=== PATIENT | female | born 1950 | race Caucasian/White ===

== ENCOUNTER 2019-12-26 19:50 | Inpatient (IN) | payer MEDICARE ==
[~2019-12-26] VITALS: Ht 167.6 cm; Wt 59.0 kg
[2019-12-26] MEDS ORDERED: SODIUM CHLORIDE 0.9% 1000ML 1,000 ML IV STA (19:54)
[2019-12-26] MEDS ORDERED: DILTIAZEM HCL 5 MG/ML 5 ML VIAL IV STA ×2 (20:20→23:06)
[2019-12-26] MEDS ORDERED: DIGOXIN INJ 0.25 MG/ML 2 ML AMP IV ONE (20:30)
--- NOTE | 2019-12-26 20:56 | Diagnostic Imaging Report ---
Examination: CT BRAIN WO CONTRAST History:Syncope Comparison studies:None Technique: Axial images were obtained from the skull base to the vertex. Coronal and sagittal images reconstructed from the axial data. Dose modulation, iterative reconstruction, and/or weight based adjustment of the mA/kV was utilized to reduce the radiation dose to as low as reasonably achievable. Intravenous contrast: None Findings: Scalp: No abnormalities. Bones: No fractures, blastic or lytic lesions. Brain sulci: Appropriate for age. Ventricles: Normal in size and configuration. No hydrocephalus. Extra-axial space: No abnormalities. Parenchyma: No abnormal densities. No masses, hemorrhage, or acute or chronic cortical based vascular insults.. Sellar/suprasellar region: No abnormalities. Craniocervical junction: Patent foramen magnum. No Chiari one malformation. Incidental findings: None. Impression: No acute intracranial abnormalities. Signed by: Dr. Augustina Watts M.D. on 12/26/2019 8:54 PM
--- NOTE | 2019-12-26 21:17 | Diagnostic Imaging Report ---
EXAMINATION: CHEST 2 VIEWS INDICATION: Syncope. COMPARISON: None FINDINGS: TUBES and LINES: None. LUNGS: Mild patchy density in the right lung base associated with elevation of the right hemidiaphragm may represent atelectasis. Mild patchy density in the right suprahilar region represent developing pneumonia in the proper clinical setting. PLEURA: Small right pleural effusion. No left pleural effusion or pneumothorax. HEART AND MEDIASTINUM: The cardiomediastinal silhouette is unremarkable. BONES AND SOFT TISSUES: No acute osseous lesion. Soft tissues are unremarkable. UPPER ABDOMEN: No free air under the diaphragm. IMPRESSION: Mild patchy density in the right suprahilar region represent developing pneumonia in the proper clinical setting. Signed by: Dr. Justin Ochoa M.D. on 12/26/2019 9:15 PM
[2019-12-26 22:09] LABS: BASOPHILS % 0.1 % (0.0-1.0); HEMOGLOBIN 12.7 g/dL (12.0-16.0); LYMPHOCYTES # (AUTO) 0.8 (1.0-3.2); LYMPHOCYTES % 12.1 % (18.0-39.1); MEAN CORPUSCULAR HEMOGLOBIN 30.8 pg (28-32); MEAN CORPUSCULAR HGB CONC 35.3 g/dL (31-35); MEAN CORPUSCULAR VOLUME 87.4 fL (81-99); MONOCYTES # (AUTO) 0.3 (0.2-0.8); MONOCYTES % 5.1 % (4.4-11.3); NEUTROPHILS # (AUTO) 5.5 (2.1-6.9); NEUTROPHILS % 82.4 % (38.7-80.0); PLATELET COUNT 204 x10e3/uL (140-360); RED BLOOD COUNT 4.12 x10e6/uL (3.6-5.1); RED CELL DISTRIBUTION WIDTH 12.3 % (11.7-14.4)
--- OUTSIDE RECORDS SUMMARY | 2019-12-26 22:15 | XMS REPORT ---
Author [facility] Address Unknown Phone Unavailable Care Team Providers Care Solar Technician Name Role Phone KATIE CHUNG Unavailable Unavailable Problems This patient has no known problems. Allergies, Adverse Reactions, Alerts This patient has no known allergies or adverse reactions. Medications This patient has no known medications. Results Test Description Test Time Test Comments Text Results Atomic Results Result Comments CHEST 2 VIEWS 2019-12-26 21:13:00 [place] [address] Patient Name: SHAWNEE KEMP MR #: [id number] : 1950 Age/Sex: 69/F Req #: [id number] Adm Physician: Ordered by: CHUNG WILSON DO Report #: [id number] Location: ER Room/Bed: Procedure: [id number] DX/CHEST 2 VIEWS Exam Date: Exam Time: REPORT STATUS: Signed EXAMINATION: CHEST 2 VIEWS INDICATION: Syncope. COMPARISON: None FINDINGS: TUBES and LINES: None. LUNGS: Mild patchy density in the right lung base associated with elevation of the right hemidiaphragm may represent atelectasis. Mild patchy density in the right suprahilar region represent developing pneumonia in the proper clinical setting. PLEURA: Small right pleural effusion. No left pleural effusion or pneumothorax. HEART AND MEDIASTINUM: The cardiomediastinal silhouette is unremarkable. BONES AND SOFT TISSUES: No acute osseous lesion. Soft tissues are unremarkable. UPPER ABDOMEN: No free air under the diaphragm. IMPRESSION: Mild patchy density in the right suprahilar region represent developing pneumonia in the proper clinical setting. Signed by: Dr. Justin Moore M.D. on 12/26/2019 9:15 PM Dictated By: MARILEE MOORE MD, MD 14 Transcribed By: MONTEZ on 12/26/192114 COPY TO: CHUNG WILSON DO CT BRAIN WO 2019-12-26 20:42:00 [place] [address] Patient Name: SHAWNEE KEMP MR #: [id number] : 1950 Age/Sex: 69/F Req #: [id number] Adm Physician: Ordered by: CHUNG WILSON DO Report #: [id number] Location: ER Room/Bed: Procedure: [id number] CT/CT BRAIN WO Exam Date: Exam Time: REPORT STATUS: Signed Examination: CT BRAIN WO CONTRAST History:Syncope Comparison studies:No ne Technique: Axial images were obtained from the skull base to the vertex. Coronal and sagittal images reconstructed from the axial data. Dose modulation, iterative reconstruction, and/or weight based adjustment of the mA/kV was utilized to reduce the radiation dose to as low as reasonably achievable. Intravenous contrast: None Findings: Scalp: No abnormalities. Bones: No fractures, blastic or lytic lesions. Brain sulci: Appropriate for age. Ventricles: Normal in size and configuration. No hydrocephalus. Extra-axial space: No abnormalities. Parenchyma: No abnormal densities. No masses, hemorrhage, or acute or chronic cortical based vascular insults.. Sellar/suprasellar region: No abnormalities. Craniocervical junction: Patent foramen magnum. No Chiari one malformation. Incidental findings: None. Impression: No acute intracranial abnormalities. Signed by: Dr. Augustina Watts M.D. on 12/26/2019 8:54 PM Dictated By: AUGUSTINA LANDEROS MD 53 Transcribed By: MONTEZ on 12/26/192053 COPY TO: CHUNG WILSON DO
[2019-12-26 22:29] LABS: ALANINE AMINOTRANSFERASE 17 IU/L (0-55); ALBUMIN 3.9 g/dL (3.5-5.0); ALBUMIN/GLOBULIN RATIO 1.4 (0.8-2.0); ALKALINE PHOSPHATASE 65 IU/L (40-150); ANION GAP 18.1 mmol/L (8-16); BLOOD UREA NITROGEN 9 mg/dL (7-26); BUN/CREATININE RATIO 11 (6-25); CALCIUM 9.1 mg/dL (8.4-10.2); CARBON DIOXIDE 17 mmol/L (22-29); CHLORIDE 103 mmol/L (98-107); CREATINE KINASE 156 IU/L (29-168); CREATININE, SERUM 0.79 mg/dL (0.57-1.11); EST GLOMERULAR FILTRATION RATE > 60 ML/MIN (60-); GLUCOSE 95 mg/dL (74-118); POTASSIUM 3.1 mmol/L (3.5-5.1); SODIUM 135 mmol/L (136-145)
[2019-12-26 22:39] LABS: CLARITY,URINE CLEAR (CLEAR); COLOR,URINE YELLOW (YELLOW); LEUKOCYTE ESTERASE ,URINE NEGATIVE (NEGATIVE)
[2019-12-26 22:40] LABS: BACTERIA,URINE MODERATE /HPF; BILIRUBIN,URINE NEGATIVE (NEGATIVE); EPITHELIAL CELLS,URINE MANY /LPF; KETONES,URINE 1+ (NEGATIVE); NITRITE,URINE NEGATIVE (NEGATIVE); PROTEIN,URINE DIPSTICK NEGATIVE (NEGATIVE); URINE UROBILINOGEN 0.2 mg/dL (0.2 - 1); WBC,URINE (MAN) 0-5 /HPF (0-5)
[2019-12-27] VITALS (21 sets, daily range): BP systolic 112–135; BP diastolic 66–80
[2019-12-27] MEDS ORDERED: DILTIAZEM HCL 5 MG/ML 5 ML VIAL IV STA (00:41)
--- NOTE | 2019-12-27 00:54 | NUR ---
PT ASKING TO TAKE HOME MEDICATION, VINEET 10. ER MD AT BEDSIDE, VERBALIZED UNDERSTANDING FOR PT TO TAKE HOME MEDICATION. SENIOR PYTHON DEVELOPER WITNESSED PT TAKE MEDICATION. PT TOLERATED WELL. NO ACUTE DISTRESS NOTED. PT STATED RT BICEP PAIN LEVEL 7/10.
--- NOTE | 2019-12-27 01:13 | Diagnostic Imaging Report ---
EXAM: CT Chest WITH contrast 12/26/2019 8:21 PM INDICATION: Chest pain. Recent surgery. Pulmonary embolism. COMPARISON: None TECHNIQUE: Chest was scanned utilizing a multidetector helical scanner from the lung apex through the level of the adrenal glands without administration of IV contrast. Coronal and sagittal reformations were obtained. Routine protocol was performed. IV CONTRAST: 100 mL of Omnipaque 300 RADIATION DOSE: Total DLP: 410.34 mGy*cm Estimated effective dose: (DLP x 0.014 x size factor) mSv COMPLICATIONS: None FINDINGS: LINES/ TUBES: None. LUNGS AND AIRWAYS: Right basilar subsegmental atelectasis. Right upper lobe pleural parenchymal scarring anteriorly may reflect post radiation changes. Mild left apical pleural-parenchymal scarring. Airways are normal. PLEURA: Small pleural effusion in the posterior right lower hemithorax. HEART AND MEDIASTINUM: 8 mm low-attenuation nodule in the right thyroid lobe. No mediastinal, hilar or axillary lymphadenopathy. The heart is normal in size.. Trace pericardial fluid. There are mild atherosclerotic calcifications in the aorta and coronary arteries. UPPER ABDOMEN: Limited non-contrast views of the upper abdomen show no abnormality within the visualized liver, spleen, pancreas, or kidneys. The adrenal glands are normal. BONES: There are degenerative changes in the thoracic spine. SOFT TISSUES: Postoperative changes involving the right shoulder, with subcutaneous emphysema along the anterior superior right hemithorax and visualized axillary region. Multiple surgical clips in the right breast IMPRESSION: 1. No acute pulmonary embolism. 2. Right basilar subsegmental atelectasis and small volume right pleural effusion. Signed by: Dr. Justin Ochoa M.D. on 12/27/2019 1:11 AM
[2019-12-27] MEDS ORDERED: IOPAMIDOL 370 MG/ML 200 ML INFUS..BTL INJ ONE (03:21)
[2019-12-27] MEDS ORDERED: SODIUM CHLORIDE 0.9% 50ML 50 ML ONE (03:21)
[2019-12-27] MEDS ORDERED: DILTIAZEM HCL 125 ML IV SCH (03:45)
[2019-12-27] MEDS: DILTIAZEM HCL 125 ML IV SCH (04:10)
[2019-12-27] MEDS ORDERED: SODIUM CHLORIDE 0.9% 100 ML ONE (04:16)
[2019-12-27] MEDS ORDERED: DILTIAZEM HCL IV 5MG/ML 25 ML VIAL ONE (04:17)
[2019-12-27] MEDS: SODIUM CHLORIDE 0.9% 1000ML 1,000 ML IV SCH ×3 (05:33→13:28)
[2019-12-27] MEDS: MORPHINE SULFATE INJ 4 MG/ML INJ 1ML IV PRN ×3 (05:39→22:05)
[2019-12-27 07:32] LABS: CREATINE KINASE 165 IU/L (29-168)
[2019-12-27] MEDS: POTASSIUM CHLORIDE 20 MEQ TAB CR PO SCH (07:54)
[2019-12-27] MEDS ORDERED: ACETAMINOPHEN 325 MG TAB PO PRN (13:00)
[2019-12-27] MEDS: ASPIRIN 81 MG CHEW TAB PO SCH (13:28)
[2019-12-27] MEDS ORDERED: POTASSIUM CHLORIDE 20 MEQ TAB CR PO NR (15:00)
--- NOTE | 2019-12-27 16:34 | NUR ---
spoke with Dr. Reynolds who was consulted for pain management. new order received.
--- NOTE | 2019-12-27 17:56 | NUR ---
Pt received from Mohamud JONES this morning. Pt reports having a R shoulder tendon and bicep repair on 12/25/19 - outpatient. Pt has a Ropivacaine pump infusing. Pt currently in SR at this time. Potassium replacement ordered. Dr. Serna and Dr. Danielle informed of consult. Cardizem turned off at 0900. Dr. Serna ordered lab work, EKG and echocardiogram. Per Fabienne SKIDDER consult pain management Dr. Reynolds, Dr. Reynolds called and informed of consult. Will continue to monitor the patient.
[2019-12-27] MEDS: CEFTRIAXONE SOD 1 GM/NS 50 ML 50 ML IV SCH (18:36)
--- NOTE | 2019-12-27 19:59 | Consultation ---
DATE OF CONSULTATION: 12/27/2019 Pulmonary Medicine Consult REASON FOR REFERRAL: Critical illness, impending organ failure. HISTORY OF PRESENT ILLNESS: Ms. Ricks is a pleasant 69-year-old female with critical illness. The patient presented to the [facility] on December 27, 2019. The patient had syncope. The patient at that time was previously on multiple medications include intermittent [place], Zanaflex intermittent as well as the recently placed right external jugular pain pump that ropivacaine in it. The patient had surgery on December 25, 2019, at [facility] outpatient area for a right shoulder surgery to repair 3 detached tendons and other reconstruction. The patient had uncomplicated course, but was sent out with pain pump as well as the pain medicine during that outpatient procedure. The patient presented with syncope on this admit, but initially was found in atrial fibrillation, heart rate 120 beats per minute. The patient with initial CT head without acute changes. CT chest with right diaphragm elevation and mild right atelectasis, very small pleural effusion. PAST MEDICAL HISTORY: Degenerative joint disease, limited history. MEDICATIONS: No medication listed on the patient's outpatient intake form, but some medicines were given postoperatively as stated above. ALLERGIES: NO KNOWN DRUG ALLERGIES. SOCIAL HISTORY: No smoking, no drinking, no drugs for majority of her life. 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 The patient lives in [facility]. FAMILY HISTORY: Noncontributory to this. REVIEW OF SYSTEMS: GENERAL: No weight changes. OPHTHALMOLOGIC: No vision changes. ENT: No mouth ulcers. ENDOCRINE: No history of thyroid problems. PULMONARY: No asthma. CARDIAC: No recent heart attack. GI: No diarrhea. : No blood in urine. NEUROLOGIC: No seizures known. PSYCHIATRIC: No depression. DERMATOLOGIC: No rashes. PHYSICAL EXAMINATION: VITAL SIGNS: Afebrile, vital signs noted and reviewed per the chart record. GENERAL: In no acute distress, alert, calm, pleasant now. HEENT: Normocephalic and atraumatic. NECK: Supple. Throat midline. LUNGS: Bilateral air entry, rare rhonchi, mostly clear. CARDIOVASCULAR: S1 and S2. No murmurs, rubs, or gallops. More regular now. ABDOMEN: Soft and nontender. EXTREMITIES: No clubbing. No cyanosis. There is no edema. INTEGUMENT: No rash. No purpura. LABORATORY DATA: 3.1 potassium, BUN 9, and creatinine 0.8. 6.7 white count, 36 hematocrit, and 204 platelets. IMPRESSION AND PLAN: 1. Atrial fibrillation with rapid ventricular rate, now better. 2. Syncope, more likely due to polypharmacy administration versus atrial arrhythmia. 3. Postoperative stay, status post recent shoulder reconstruction few days ago. 4. Admit with syncope. 5. Arthritis. Check full labs including repeat electrolytes and thyroid screening. Continue diltiazem for rate control. Some potassium given to initial dosing. Check magnesium level. The patient activated with bupivacaine pain pump inserted and we will leave this to [facility] specialist unless they deferred to us. The patient tells me the pump self-terminates usage after the medicine runs out, which would be another day or 2 critical arrhythmia, we will not act emergently and override any of the pump settings. Thank you very much, Dr. Hughes, for allowing me a chance to participate in the care of Ms. Ricks. Please call for questions. MD GRACE Park/CASA /[id number]
--- NOTE | 2019-12-27 20:04 | Consultation ---
DATE OF CONSULTATION: 12/27/2019 Cardiac Consultation REASON FOR CONSULTATION: Atrial fibrillation. HISTORY OF PRESENT ILLNESS: A 69-year-old lady, who is very active and healthy. She does have problem with her right shoulder. She has viral illness. She had her surgery done and she had pain pump implantation. The patient felt dizzy, passing out. She came to the emergency room. She was in atrial fibrillation with relatively slow ventricular response in the 80s. She is admitted to intensive care unit, started initially on Cardizem. She converted back to normal sinus rhythm. The patient denied having any angina. She said she is having some shortness of breath. She said she was fainted after the surgery when this problem started. CT chest showed no pulmonary embolism. It showed subcutaneous emphysema and swelling of the soft tissue. Cardiac enzymes are normal. REVIEW OF SYSTEMS: GENERAL: No fever. No chills. HEENT: No vision problem. No hearing problem. PULMONARY: No cough. No hemoptysis. Some shortness of breath. CARDIOVASCULAR: No angina. No prior syncope or presyncope. No palpitation. GI: No hematemesis. No melena. : No hematuria. No dysuria. MUSCULOSKELETAL: Right shoulder pain. NEUROLOGICAL: No seizure activity. ENDOCRINE: No diabetes. No heat or cold intolerance. HEMATOLOGY: No easy bruising or bleeding. 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 She is nonsmoker, not alcohol drinker. HOME MEDICATIONS: None. CURRENT MEDICATIONS: Novocaine pump, trazodone, and [place]. ALLERGIES: NONE. PAST MEDICAL HISTORY: All is right shoulder problem, right breast lumpectomy with radiation therapy for breast cancer. FAMILY HISTORY: Father of old age at age 91, he had congestive heart failure. Mother of complication of breast cancer at age 92. No siblings. One healthy son. PHYSICAL EXAMINATION: VITAL SIGNS: Height of 5 feet 6 inches, weight of 130 pounds, blood pressure 120/70, heart rate of 70, regular rate and rhythm, respiratory rate of 20, and afebrile. HEENT: Pupils are equal and reactive. NECK: No elevation of jugular venous pulsation. No bruit. CHEST: Clear to auscultation and percussion. HEART: PMI 5th left intercostal space. Normal first and second heart sounds. ABDOMEN: Soft. Good bowel sounds. EXTREMITIES: Right arm is in immobilizer. NEUROLOGIC: Awake, alert, and oriented. No motor or sensory deficits. LABORATORY DATA: CT head is negative. CT chest was negative for pulmonary embolism. There are some lung changes. Subcutaneous tissue emphysema is noted. EKG showing atrial fibrillation with no fast heart rate almost at 100-110. Telemetry, she is in normal sinus rhythm. IMPRESSION AND PLAN: 1. An episode of syncope after surgery, multifactorial, first episode the patient having. 2. No active cardiac symptoms. 3. Atrial fibrillation with a relatively slow heart rate or relatively slow V-response since heart rate response only in the 110-120, which is expected in a person with new atrial fibrillation with heart rate to be 170-180 or more even more. This will probably indicate a little bit of conduction abnormalities. The patient is back in normal sinus rhythm. We will check TSH. We will repeat EKG to be sure that EKG on normal sinus rhythm and showing no abnormality. We will check an echocardiogram. There is no pulmonary embolism. We will not recommend any beta-ella or any other medication for the time being. Definitely, we will start aspirin. Her CHADS score is only 1. Her CHADS2 score is 2. All this explained and discussed with the patient. For the time being, we will recommend observation pending on the results and course further steps to be done. MD XOCHITL Newby/CASA /[id number]
--- NOTE | 2019-12-27 20:13 | Diagnostic Imaging Report ---
EXAMINATION: CHEST SINGLE (PORTABLE) INDICATION: Pneumonia. COMPARISON: 12/26/2019. FINDINGS: TUBES and LINES: None. LUNGS: Mild elevation of the right hemidiaphragm suggestive of subsegmental atelectasis. Mild interval decrease in patchy density in the right apex. PLEURA: Small right pleural effusion. No left pleural effusion or pneumothorax. HEART AND MEDIASTINUM: The cardiomediastinal silhouette is unremarkable. BONES AND SOFT TISSUES: No acute osseous lesion. Soft tissues are unremarkable. UPPER ABDOMEN: No free air under the diaphragm. IMPRESSION: Mild patchy density in the right suprahilar region has somewhat decreased since the prior exam. Signed by: Dr. Justin Ochoa M.D. on 12/27/2019 8:10 PM
--- NOTE | 2019-12-27 22:19 | History and Physical ---
PCP: Dr. Grover at [facility]. CHIEF COMPLAINT: Dizziness and shortness of breath. HISTORY OF PRESENT ILLNESS: This is a 69-year-old female with no past medical history presented to the ER with complaints of dizziness and syncope. She reported having right shoulder and biceps surgery due to overuse due to playing violin. She reported the surgery was done on December 25 two days ago. Has a pain pump, which she reports has been causing her to feel dizzy and palpitation with dizziness ever since the surgery. She denies any chest pain, any nausea, vomiting, shortness of breath, cough, jerky movements, incontinence. She upon arrival to the ER initially was in normal sinus rhythm and converted to atrial fibrillation with RVR shortly. She was given Cardizem IV and digoxin with not much improvement, so was started on Cardizem drip and transferred to the ICU for further monitoring. PAST MEDICAL HISTORY: Breast cancer. SURGICAL HISTORY: 1. She reports right lobectomy. 2. Small bowel resection. 3. Skin cancer removal. FAMILY MEDICAL HISTORY: Mother of breast cancer. Father of heart failure at age of 91. SOCIAL HISTORY: She denies any tobacco, alcohol, or illicit drug use. 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 ALLERGIES: NO KNOWN DRUG ALLERGIES. REVIEW OF SYSTEMS: GENERAL: Fatigue and dizzy. HEENT: No head trauma. NECK: Supple. LUNGS: Decreased breath sounds. CARDIOVASCULAR: Palpitations. No chest pain. GI: No nausea or vomiting. NEUROLOGIC: Dizziness, syncope. MUSCULOSKELETAL: Generalized weakness. Right arm, shoulder and biceps pain. SKIN: No rash. PHYSICAL EXAMINATION: VITAL SIGNS: Temperature 98.4, pulse 64, respirations 11, blood pressure 135/66, pulse ox 100% on room air. GENERAL: No acute distress. HEENT: Normocephalic, atraumatic. NECK: Supple. LUNGS: Decreased breath sounds. CARDIOVASCULAR: Regular rate and rhythm. GI: Soft and nontender. NEUROLOGIC: Alert, awake, and oriented x3. MUSCULOSKELETAL: Right shoulder limited movement due to recent surgery and is in sling. SKIN: Dry. PSYCHIATRIC: Calm. LABORATORY DATA: WBC 6.67, hemoglobin 12.7, hematocrit 36.0, platelet 204. Chemistry: Sodium 135, potassium 3.1, CO2 is 17, BUN 9, creatinine 0.79, troponin 0.001, AST 21, ALT 17. Urine is yellow, clear with 1+ ketones, no leukocytes or wbc's. IMAGING: CT brain, no acute intracranial abnormalities. CT chest, no acute pulmonary embolism. Right basilar subsegmental atelectasis and small volume right pleural effusion. Chest x-ray shows mild patchy density in the right suprahilar region represent developing pneumonia in the proper clinical setting. IMPRESSION: 1. Syncope. CT brain negative. Cardiac enzymes negative. Sodium 135, potassium 3.1. Cardiology has been consulted. 2. Echocardiogram pending. 3. Atrial fibrillation with rapid ventricular response. She was given digoxin and Cardizem drip. She is off the drip now. Currently in normal sinus rhythm. Echo pending. Cardiology on the case. 4. Hypokalemia. We will replace and we will recheck. 5. Hyponatremia. Likely due to dehydration. We will continue to monitor closely. 6. Recent right shoulder and radial surgery. Pain management consulted to stop pain pump and re-evaluate. 7. Possible pneumonia on chest x-ray. We will treat with neb treatment and Rocephin. We will repeat chest x-ray in the morning. 8. History of breast cancer. 9. Deep venous thrombosis prophylaxis. We will defer anticoagulation to clinic manager. PLAN: To continue to monitor the patient in the ICU. Replace electrolytes and monitor on tele. Dictated by SARA Babin Jessica Hughes MD MY/MODL /[id number]
[2019-12-28] VITALS (21 sets, daily range): BP systolic 91–144; BP diastolic 53–93
[2019-12-28] MEDS: MORPHINE SULFATE INJ 4 MG/ML INJ 1ML IV PRN ×5 (02:12→19:18)
[2019-12-28] MEDS: DILTIAZEM HCL 125 ML IV SCH ×2 (04:00→23:05)
[2019-12-28] MEDS: SODIUM CHLORIDE 0.9% 1000ML 1,000 ML IV SCH ×2 (05:40→22:03)
[2019-12-28 06:21] LABS: ALANINE AMINOTRANSFERASE 26 IU/L (0-55); ALBUMIN 3.4 g/dL (3.5-5.0); ALBUMIN/GLOBULIN RATIO 1.3 (0.8-2.0); ALKALINE PHOSPHATASE 57 IU/L (40-150); ANION GAP 15.8 mmol/L (8-16); BLOOD UREA NITROGEN 6 mg/dL (7-26); BUN/CREATININE RATIO 9 (6-25); CALCIUM 8.5 mg/dL (8.4-10.2); CARBON DIOXIDE 18 mmol/L (22-29); CHLORIDE 108 mmol/L (98-107); EST GLOMERULAR FILTRATION RATE > 60 ML/MIN (60-); GLUCOSE 75 mg/dL (74-118); MAGNESIUM 1.6 MG/DL (1.3-2.1); PHOSPHORUS 3.2 MG/DL (2.3-4.7); POTASSIUM 3.8 mmol/L (3.5-5.1); SODIUM 138 mmol/L (136-145)
[2019-12-28 06:26] LABS: THYROID STIMULATING HORMONE 1.346 uIU/mL (0.350-4.940)
[2019-12-28 06:34] LABS: CHOL/HDL RATIO 2.8 (3.0-3.6)
--- NOTE | 2019-12-28 08:04 | NUR ---
Patient ambulate to restroom with standby supervision. Steady gait, able to perform ADLs independently with her left arm. Linens replaced. No acute distress noted.
[2019-12-28] MEDS: POTASSIUM CHLORIDE 20 MEQ TAB CR PO SCH ×2 (09:00→10:27)
[2019-12-28] MEDS: ASPIRIN 81 MG CHEW TAB PO SCH (09:34)
--- NOTE | 2019-12-28 10:28 | NUR ---
Adrianne for patient to transfer to Med Surg with Tele per Dr Serna.
[2019-12-28] MEDS: METOPROLOL TARTRATE 25 MG TAB PO SCH ×2 (11:03→17:15)
--- NOTE | 2019-12-28 14:00 | NUR ---
Nutrition Screen Note RD Recommendation for Physician: - Continue current diet Plan of Care: RD following, monitoring for tolerance and adequacy Nutrition reason for involvement: Nutrition Risk Trigger Primary Diagnose(s): Afib with RVR, syncope PMH: R lobectomy, small bowel resection, skin cancer Ht: 66 in Wt: 130 lb BMI: 21.0 kg/m2 IBW: [address] Assessment: (12/28) 69 YOF admitted for Afib with RVR, pt seen today per MST2 screen. 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 Pt denies any N/V/C/D. Pt denies any wt loss, reports UBW of 125-135#. Pt with no questions or concerns at time of visit. Chart reviewed. Labs and meds reviewed. Will monitor and continue to follow. Current Diet: Cardiac Malnutrition Evaluation (12/28/19) The patient does not meet criteria for a specified degree of malnutrition at this time. Will re-evaluate at follow-up as appropriate. Diet Education Needs Assessment: Diet education not indicated. Diet tolerance: tolerating po Nutrition Care Level: low Signed: Ophelia Leon RD, LD, [facility]
[2019-12-28] MEDS ORDERED: ALBUTEROL SULF 0.083% NEB SOLN 3 ML NEB NEB PRN (15:30)
[2019-12-28] MEDS: APIXABAN 5 MG TABLET PO SCH (17:14)
--- NOTE | 2019-12-28 17:34 | Progress Note ---
DATE: 12/28/2019 CONSULTANTS: 1. Dr. Serna with Cardiology. 2. Dr. Danielle with plaster mechanic. CHIEF COMPLAINT: Dizziness and shortness of breath with right shoulder pain post surgery. SUBJECTIVE: She remains in ICU, had another episode of atrial fibrillation with RVR this morning. Now with controlled rate of 100 to 110 and atrial fibrillation on the monitor. She reports right shoulder pain is increased. She denies any chest pain, nausea, vomiting, or shortness of breath. PHYSICAL EXAMINATION: VITAL SIGNS: Temperature 97.9, pulse is 109, respirations 17, blood pressure 129/81, and pulse ox is 98% on room air. GENERAL: Fatigue. HEENT: Normocephalic and atraumatic. NECK: Supple. LUNGS: With decreased breath sounds. CARDIOVASCULAR: Irregular rate and rhythm. GI: Soft and nontender. NEUROLOGIC: Alert, awake, and oriented x3. MUSCULOSKELETAL: Right shoulder limited movement due to recent surgery. Lower extremities, no edema, able to move with no limitations. SKIN: Dry. PSYCHIATRIC: Calm. LABORATORY DATA: Sodium 138, potassium 3.8, CO2 18, creatinine 0.70, and estimated GFR greater than 60. AST 36 and ALT 26. Total protein 6. TSH is 1.34. LDL 97, HDL 59, and triglycerides 47. IMAGING: Chest x-ray, mild patchy density in the right suprahilar region has somewhat decreased since the prior exam. IMPRESSION: 1. Syncope. CT brain negative. Cardiac enzymes negative. Sodium and potassium replaced. Echocardiogram pending. Cardiology has been consulted. 2. Atrial fibrillation with rapid ventricular response, was given digoxin and Cardizem. She is started on beta blockers p.o. b.i.d. Currently, rate is controlled. Echo pending, TSH within normal limits. On Eliquis for cerebrovascular accident prophylaxis. 3. Hypokalemia. Replaced. 4. Hyponatremia. Replaced. 5. Recent right shoulder and radial surgery. Continue pain management, keep in sling. Pain management has been consulted. Started on morphine IV. 6. Possible pneumonia on chest x-ray. Continue with Rocephin and nebs. Chest x-ray improved. 7. History of breast cancer. On remission. 8. Deep vein thrombosis prophylaxis. On Eliquis. PLAN: To continue current treatment, tele monitor, pain management as needed. Further recommendations per Cardiology. Dictated by Fabienne Bell, ANP MD NATA Watkins/CASA /[id number]
[2019-12-28] MEDS: CEFTRIAXONE SOD 1 GM/NS 50 ML 50 ML IV SCH (17:56)
--- NOTE | 2019-12-28 19:00 | NUR ---
Bedside report received from Margo Riley RN. Care plan reviewed. Pt reports increasing pain to right breast/shoulder (will administer pain medication per prn md orders, refer to [facility] for further details. No signs of distress noted.
--- NOTE | 2019-12-28 22:36 | NUR ---
Pulmonary Medicine DATE 12/28/2019 SUBJECTIVE CARDIZEM off yesterday AM no significant arrhythmias, however recurred this AM afib with 160 bpm eating BM updated orthopedics at [facility] REVIEW OF SYSTEMS: no bleed, No rashes. PHYSICAL EXAMINATION: VITAL SIGNS: vital signs noted and reviewed per the chart record. GENERAL: In no acute distress, alert, calm, pleasant now. HEENT: Normocephalic and atraumatic. NECK: Supple. Throat midline. LUNGS: Bilateral air entry, rare rhonchi, mostly clear. CARDIOVASCULAR: S1 and S2. No murmurs, rubs, or gallops. ABDOMEN: Soft and nontender. EXTREMITIES: No clubbing. No cyanosis. no edema. INTEGUMENT: No rash. No purpura. LABORATORY DATA: k 3.8, cr 0.70, wbc 6.7, hct 36 IMPRESSION AND PLAN: 1. Atrial fibrillation with rapid ventricular rate, recurred 2. Syncope, due to polypharmacy administration versus atrial arrhythmia. 3. Postoperative stay, s/p recent shoulder reconstruction 4. Admit with syncope. 5. Arthritis. Continue diltiazem for rate control. Maintain electrolytes stable dc bupivacaine pain pump can leave the ICU mag citrate prn Thank you very much, Dr. Hughes, for allowing me a chance to participate in the care of Ms. Ricks. Please call for questions.
[2019-12-29] VITALS (16 sets, daily range): BP systolic 96–135; BP diastolic 55–86
[2019-12-29] MEDS: MORPHINE SULFATE INJ 4 MG/ML INJ 1ML IV PRN ×3 (00:48→10:10)
--- NOTE | 2019-12-29 00:48 | NUR ---
Dr. Danielle present and rounding on the pt.
[2019-12-29] MEDS: APIXABAN 5 MG TABLET PO SCH ×2 (08:27→16:34)
[2019-12-29] MEDS: METOPROLOL TARTRATE 25 MG TAB PO SCH ×2 (08:27→16:35)
[2019-12-29] MEDS ORDERED: MORPHINE SULFATE ORAL SOLN 10 MG/5 ML UDC PO PRN (11:00)
--- NOTE | 2019-12-29 11:13 | Progress Note ---
DATE: 12/29/2019 CONSULTANTS: 1. Dr. Serna with Cardiology. 2. Dr. Reynolds with Pain Management. 3. Dr. Danielle with media liaison officer. CHIEF COMPLAINT: Dizziness and shortness of breath with right shoulder pain post surgery. SUBJECTIVE: The patient remains in ICU. Reports right shoulder pain is improving. She has normal sinus rhythm on the monitor. Denies any chest pain, shortness of breath, nausea, vomiting. PHYSICAL EXAMINATION: VITAL SIGNS: Temperature 98.0, pulse is 80, respirations 17, blood pressure 103/66, pulse ox is 97% on room air. GENERAL: No acute distress. HEENT: Normocephalic, atraumatic. NECK: Supple. LUNGS: With decreased breath sounds. CARDIOVASCULAR: Regular rate and rhythm. GI: Soft and nontender. NEUROLOGIC: Alert, awake, and oriented x3. MUSCULOSKELETAL: Limited right shoulder movement due to recent surgery. Lower extremities with no edema or pain. SKIN: Dry. PSYCH: Calm. IMPRESSION: 1. Syncope. CT brain is negative. Cardiac enzymes x3 negative. Echocardiogram and Cardiology have been consulted. Reports syncope may be likely due to muscle relaxer and new pain management. 2. Atrial fibrillation with rapid ventricular response. Now normal sinus rhythm. Continue beta-blockers and Eliquis for cerebrovascular accident prophylaxis. Continue to monitor on tele. 3. Hypokalemia, replaced. 4. Hyponatremia, replaced. 5. Recent right shoulder and radial surgery. Continue pain management with morphine IV. Pain management has been consulted. 6. Possible pneumonia on chest x-ray. Continue with Rocephin and nebs. Chest x-ray improving. We will repeat chest x-ray today. 7. History of breast cancer. On remission. 8. Deep vein thrombosis prophylaxis. On Eliquis. PLAN: Continue current treatment, pain management as needed. We will repeat chest x-ray today. Further recommendation per Cardiology. Dictated by SARA Babin Jessica Hughes MD MY/MODL /[id number] Seen and examined, discussed with Drs. Serna/Rodolfo, will switch iv morphine to po morphine. Agree with the findings and plan as documented by SARA Bell. VERAD
--- NOTE | 2019-12-29 12:11 | NUR ---
Pulmonary Medicine DATE 12/29/2019 SUBJECTIVE atrial fibrillation ~15 sec episode IVF 60/hr NS getting intermittent morphine pain rx no resp distress, RA fio2 no BM REVIEW OF SYSTEMS: no bleed, No rashes. PHYSICAL EXAMINATION: VITAL SIGNS: vital signs noted and reviewed per the chart record. GENERAL: no acute distress, alert, calm HEENT: Normocephalic, atraumatic. NECK: Supple. Throat midline. LUNGS: Bilateral air entry, rare rhonchi, mostly clear. CARDIOVASCULAR: S1 and S2. No murmurs, rubs, or gallops. ABDOMEN: Soft and nontender. EXTREMITIES: No clubbing. No cyanosis. no edema. INTEGUMENT: No rash. No purpura. LABORATORY DATA: no new updates IMPRESSION AND PLAN: 1. Atrial fibrillation with rapid ventricular rate, recurred 2. Syncope, due to polypharmacy administration versus atrial arrhythmia. 3. Postoperative stay, s/p recent shoulder reconstruction 4. Admit with syncope. 5. Arthritis. Continue metoprolol for rate control. check intermittent electrolytes d/c IVF PO diet can leave the ICU mag citrate prn Thank you very much, Dr. Hughes, for allowing me a chance to participate in the care of Ms. Ricks. Please call for questions.
--- NOTE | 2019-12-29 12:15 | NUR ---
ASSESSMENT: Spiritual Distress Pt overwhelmed by grief. Pt states her 4 years ago and she hasn't adequately grieved because of subsequent deaths in her immediate family. 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 Pt states "it (playing the violin with her playing the accordion) was my life." Pt expressed emotions thru words and tears. Intervention: Provided unhurried empathic listening. Facilitated illness review and identification of emotions. Provided information on how to reach stove bottom worker, if needed. Outcome: Will follow as able. Pt expressed appreciation for support. Followed up w/ RNs. AUDREY ALMANZA [employer] Cash[employer] Spiritual Care Department O: [phone]
--- NOTE | 2019-12-29 13:22 | Diagnostic Imaging Report ---
Chest, portable AP view History: Pneumonia Comparison: 12/27/2019, chest CT dated 12/26/2019 IMPRESSION: The heart is within normal limits of size. The mediastinal and hilar contours are unremarkable. No focal consolidation, sizable pleural effusion, or pneumothorax. Previously described patchy right suprahilar opacity is not identified on the current examination. Signed by: Adrian Watson MD on 12/29/2019 1:20 PM
[2019-12-29] MEDS ORDERED: CITRATE OF MAGNESIA 300ML BOTTLE PO PRN (14:15)
[2019-12-29] MEDS: CEFTRIAXONE SOD 1 GM/NS 50 ML 50 ML IV SCH (18:28)
--- NOTE | 2019-12-29 19:25 | NUR ---
reports received, patient in bed, resting, no acute distress noted, she just received PRN pain med on previous shift, will continue to monitor.
[2019-12-29] MEDS: HYDROCODONE/APAP 5MG-325MG TAB PO PRN (23:26)
[2019-12-30 01:03] VITALS: BP 104/62
[2019-12-30] MEDS: DILTIAZEM HCL 125 ML IV SCH (04:00)
[2019-12-30 04:09] VITALS: BP 103/63
[2019-12-30 05:19] VITALS: BP 99/61
[2019-12-30 07:00] VITALS: BP 112/70
[2019-12-30] MEDS: APIXABAN 5 MG TABLET PO SCH ×2 (08:03→17:37)
[2019-12-30] MEDS: METOPROLOL TARTRATE 25 MG TAB PO SCH ×2 (08:04→17:37)
[2019-12-30 08:30] VITALS: BP 98/57
--- NOTE | 2019-12-30 08:41 | NUR ---
left ac p.iv removed. leaking at site when flushed.
[2019-12-30] MEDS: HYDROCODONE/APAP 5MG-325MG TAB PO PRN (10:36)
[2019-12-30 11:00] VITALS: BP 104/64
--- NOTE | 2019-12-30 12:53 | NUR ---
Pulmonary Medicine DATE 12/30/2019 SUBJECTIVE no further arrythmia patient walking, independent shoulder in harness REVIEW OF SYSTEMS: no bleed, No rashes. PHYSICAL EXAMINATION: VITAL SIGNS: vital signs noted and reviewed per the chart record. GENERAL: no acute distress, alert, calm HEENT: Normocephalic, atraumatic. NECK: Supple. Throat midline. LUNGS: Bilateral air entry, rare rhonchi, mostly clear. CARDIOVASCULAR: S1 and S2. No murmurs, rubs, or gallops. ABDOMEN: Soft and nontender. EXTREMITIES: No clubbing. No cyanosis. no edema. INTEGUMENT: No rash. No purpura. LABORATORY DATA: no new updates IMPRESSION AND PLAN: 1. Atrial fibrillation with rapid ventricular rate, resolved 2. Syncope, due to polypharmacy administration versus atrial arrhythmia. 3. Postoperative stay, s/p recent shoulder reconstruction 4. Admit with syncope. 5. Arthritis. Continue metoprolol for rate control. anticoagulation pain rx possible home soon Thank you very much, Dr. Hughes, for allowing me a chance to participate in the care of Ms. Ricks. Please call for questions.
[2019-12-30] MEDS: CEFTRIAXONE SOD 1 GM/NS 50 ML 50 ML IV SCH (17:38)
--- NOTE | 2019-12-30 17:38 | NUR ---
PATIENT DISCHARGED FROM ICU [facility] WITH ALL BELONGINGS. PT GIVEN DISCHARGE INSTRUCTIONS AND EDUCATION. RX GIVEN FOR ELEQUIS AND METOPROLOL. PT INSTRUCTED TO FOLLOW UP WITH PRIMARY MD IN ONE WEEK. TO FOLLOW UP WITH PAIN DR. HYMAN IF PAIN BECOMES UNCONTROLLABLE UPON DISCHARGE. PT AND SIGNIFICANT OTHER BOTH VERBALIZED UNDERSTANDING. PT AMBULATED TO [facility] WITH SUPERVISION AND LEFT VIA PRIVATE AUTO.
--- NOTE | 2019-12-31 14:31 | Discharge Summary ---
PRIMARY CARE DOCTOR: Dr. Monalisa Graves. FINAL DIAGNOSIS: Syncope, likely due to severe right shoulder pain after surgery. SECONDARY DIAGNOSIS: Paroxsymal atrial fibrillation with rapid ventricular response currently in sinus. CONSULTANTS: 1. Dr. Serna, Cardiology. 2. Dr. Reynolds, pain specialist. PROCEDURE/STUDIES PERFORMED: Brain CT and head CT. HISTORY: Per H and P. HOSPITAL COURSE: The patient was admitted and was evaluated by Cardiology. Currently, the patient is in sinus per [id number] score. The patient does anticoagulation however per [id number] score she does not. Given the fact that she was still in and out of atrial fibrillation, Cardiology decided probably she should have this schedule in the month of . I have discussed this with her Prtii primary care doctor who will refer her to [place] [employer] to make the final determination as to how long she should be on anticoagulation. The patient will also go home on metoprolol. The patient will continue her Tippo for her shoulder pain. The patient was seen and examined today. It took 32 minutes total to discharge this patient. CONDITION ON DISCHARGE: Improved. DISCHARGE MEDICATIONS: Please see medication reconciliation form. DISCHARGE INSTRUCTIONS: The patient will follow up with her primary care doctor in one week. MD PAUL Watkins/CASA /[id number] cc: Prit[facility]
== END 2019-12-30 17:41 | disposition home or self-care (01) | DRG 309 ==
LOC: ER 19:50 → ERHOLD 21:36 → ICU 12-27 05:10 → OBSVTOIN 12-27 05:18
PROVIDERS: ADMIT Internal Medicine; ATTEND Internal Medicine
DX: I48.0 Paroxysmal atrial fibrillation (principal); E87.1 Hypo-osmolality and hyponatremia; R55 Syncope and collapse; E87.6 Hypokalemia; Z85.3 Personal history of malignant neoplasm of breast; M19.90 Unspecified osteoarthritis, unspecified site; M25.511 Pain in right shoulder
CPT/HCPCS: 36415; 70450; 71045; 71046; 71260; 80053; 80061; 81001; 82550; 82553; 83735; 84100; 84443; 84484; 85025; 93005; 93306; 99284; G0378; J0696; J1160; J2270; J7030; J7050; Q9967